=== PATIENT | female | born 1990 | race Caucasian/White ===

== ENCOUNTER 2016-07-04 11:41 | Emergency (ER) | payer MEDICAID ==
[~2016-07-04] VITALS: Ht 152.4 cm; Wt 56.7 kg
--- NOTE | 2016-07-04 11:41 | NUR ---
Patient triaged and placed in waiting room. VSS and patient appears in no acute distress at this time. Accompanied by FAMILY, awaiting available bed, and MD notified of need for MSE.
[2016-07-04 11:45] VITALS: BP 97/58; PULSE 67; RESP 18; TEMP 97.1; O2SAT 96
--- NOTE | 2016-07-04 13:20 | NUR ---
BROUGHT BACK TO BED #4 AND REPORT GIVEN TO ANTONIO
--- NOTE | 2016-07-04 13:25 | NUR ---
Dr Johns at bedside examining patient
--- NOTE | 2016-07-04 13:26 | NUR ---
Pt brought by self, A&Ox4, pt states she woke up this am she pushed herself with L arm, c/o dislocation to left shoulder , pain 6/10, cap refill <3, VS WNL, skin pink and warm, limited ROM.PER Pt she has Hx of dislocation on L shoulder x 15.
[2016-07-04] MEDS ORDERED: NACL 0.9% 1,000 ML IV ONE (14:03)
[2016-07-04] MEDS ORDERED: ONDANSETRON HCL 4 MG/2 ML VIAL IVP ONE (14:15)
[2016-07-04] MEDS ORDERED: KETOROLAC TROMETHAMINE 30 MG VIAL IVP ONE (14:15)
[2016-07-04] MEDS ORDERED: MORPHINE 4 MG/ML INJ. SYRINGE IVP ONE (14:15)
[2016-07-04] MEDS ORDERED: ETOMIDATE 20 MG/ 10 ML VIAL (AMIDATE) IVP ONE (15:30)
[2016-07-04] MEDS ORDERED: DIAZEPAM 10 MG/2 ML DISP.SYRIN IVP ONE (15:30)
--- NOTE | 2016-07-04 15:56 | NUR ---
Dr Goldstein, EMT, RT and RN at bedside to perform moderated sedation /reduction on L shoulder , pt VS WNL, pt taking antiseizures medications as ordered , no evidence of seizures in the last couple days, cap refill <3, VS WNL, pt medicated with Atomidate 10mg IVP,medication well tolerated.
--- NOTE | 2016-07-04 16:12 | NUR ---
X-ray at bedside
--- NOTE | 2016-07-04 16:40 | NUR ---
Pt Alert and oriented x4, denies pain at this time, pt states she is sleepy after well tolerated moderate sedation procedure, no nausea or vomiting, VS WNL, no evidence of seizures, family at bedside.
--- NOTE | 2016-07-04 17:50 | NUR ---
Patient given written and verbal discharge instructions and verbalizes understanding. ER MD discussed with patient the results and treatment provided. Patient in stable condition. ID arm band removed. IV catheter removed intact and dressing applied, no active bleeding. Rx of Motrin given. Patient educated on pain management and to follow up with PMD. Pain Scale 0/10. Opportunity for questions provided and answered.
[2016-07-04 17:52] VITALS: BP 110/73; PULSE 67; RESP 18; TEMP 98; O2SAT 97
== END 2016-07-04 17:52 | disposition home or self-care (01) ==
LOC: SED 11:41
DX: S43.015A Anterior dislocation of left humerus, initial encounter (principal); X58.XXXA Exposure to other specified factors, initial encounter; Y93.89 Activity, other specified; Y99.8 Other external cause status; Y92.89 Other specified places as the place of occurrence of the external cause
CPT/HCPCS: 23650; 36415; 73030; 81025; 84703; 96360; 96374; 96375; 99152; 99285; J1885; J2270; J2405; J3360; J3490; J7030; 96361

== ENCOUNTER 2016-07-16 13:51 | Emergency (ER) | payer BC, MEDICAID ==
--- NOTE | 2016-07-16 14:38 | NUR ---
Unable to locate pt for triage.
--- NOTE | 2016-07-16 14:47 | NUR ---
Unable to locate pt for triage.
--- NOTE | 2016-07-16 14:55 | NUR ---
Third call unable to locate pt. Presumed to have left without being seen.
== END 2016-07-16 14:55 | disposition left against medical advice (07) ==
LOC: SED 13:51
DX: M25.519 Pain in unspecified shoulder (principal); Z53.21 Procedure and treatment not carried out due to patient leaving prior to being seen by health care provider